=== PATIENT | female | born 1970 | race Caucasian/White ===

== ENCOUNTER 2016-08-23 20:32 | Emergency (ER) | payer MEDICAID ==
[~2016-08-23] VITALS: Ht 165.1 cm; Wt 61.3 kg
[2016-08-23] MEDS ORDERED: FAMOTIDINE 20 MG/2 ML IVP ONE (21:00)
[2016-08-23] MEDS ORDERED: ONDANSETRON 2MG/ML, 2ML IVPush ONE (21:00)
[2016-08-23] MEDS ORDERED: SODIUM CHLORIDE 0.9% 1,000ML IVBOLUS ONE (21:00)
[2016-08-23] MEDS ORDERED: SODIUM CHLORIDE FLUSH 10ML SYR IVF ONE (21:00)
[2016-08-23 21:18] LABS: ASPARTATE AMINO TRANSFERASE 27 U/L (15-37); BLOOD UREA NITROGEN 11 mg/dL (7-18)
[2016-08-23] MEDS ORDERED: OMEP20CA14 PO (21:25)
[2016-08-23] MEDS ORDERED: CITA40TA12 PO (21:25)
[2016-08-23] MEDS ORDERED: FAMOTIDINE 20 MG/2 ML ONE (21:28)
[2016-08-23] MEDS ORDERED: ONDANSETRON 2MG/ML, 2ML ONE (21:28)
[2016-08-23 22:25] VITALS: BP 121/64
== END 2016-08-23 22:34 | disposition home or self-care (01) ==
LOC: ED 22:00
DX: F10.120 Alcohol abuse with intoxication, uncomplicated (principal); F17.210 Nicotine dependence, cigarettes, uncomplicated
CPT/HCPCS: 36415; 80053; 80307; 83690; 85025; 96361; 96374; 96375; 99284; J2405; J7030; S0028